=== PATIENT | male | born 1955 | race Caucasian/White ===

== ENCOUNTER 2020-03-25 09:38 | Emergency (ER) | payer BC ==
[~2020-03-25] VITALS: Ht 177.8 cm; Wt 108.8 kg
--- NOTE | 2020-03-25 10:05 | ED Back Pain ---
General Chief Complaint: Back Problems Stated Complaint: BACK PAIN Nursing Triage Note: Pt c/o back pain that began approximately three weeks ago that then moved into bilat hip pain. Pt reports history of bulging disks. Pt reports taking aleve with some relief for approximately one hour after taking. Pt also stated the pain feels like "there are high heeled gorillas standing on my toes." Pt reports urinating without difficulty, however is having difficulty with bowel movements. Pt has seen Dr. Lockhart in the past for this problem, but reports it has been approximately 7-8 years since last visit. Pt reports pain of 2/10 righto now, however with movement, pain is 7-8/10. Nursing Sepsis Screen: No Definite Risk Source of Information: Patient Exam Limitations: No Limitations (ANDREA HERNANDEZ,MED STUDENT) History of Present Illness Date Seen by Provider: Mar 25, 2020 Time Seen by Provider: 09:50 Initial Comments Mr. Castro is a 64 year old male who presents to the emergency department this morning with complaints of back pain. The pain originally started 3 weeks ago but worsened 2 days ago. He denies any trauma or injury but states he has been hauling rock and moving which has exacerbated the pain. He has tried aleve with little improvement. He has a history of disc herniation, he was previously seen by Dr. Lockhart and tried physical therapy as well as injections but states he only got relief for 1.5 days with the injections so discontinued. He has not been seen for his back problems in nearly 8 years. The pain is improved with rest and laying flat. The pain is described to be a 2/10 with rest and an 8/10 with movement. He denies incontinence or trouble with urination. He states he is slightly constipated but attributes it the the aleve. Last bowel movement was this morning. Location: Lumbar Spine Timing/Duration: Getting Worse Severity: Moderate Pain/Injury Location: Back Radiation: Other (left hip) Modifying Factors: Worse With Movement; Improves With Rest Associated Symptoms: No muscle spasms, No weakness; numbness in legs/feet (left (waxes and wanes)); No loss of bladder control, No loss of bowel control (ANDREA HERNANDEZ,MED STUDENT) Allergies and Home Medications Allergies Coded Allergies: No Known Drug Allergies (Unverified , 07/30/15) Home Medications Cyclobenzaprine HCl 10 Mg Tablet, 10 MG PO Q8H PRN for SPASMS Prescribed by: CARMEN PAT on 03/25/201101 Oxycodone HCl/Acetaminophen 1 Each Tablet, 1 TAB PO Q4H Prescribed by: CARMEN PAT on 03/25/201101 Prednisone 20 Mg Tab, 40 MG PO DAILY Prescribed by: CARMEN PAT on 03/25/201101 Tramadol HCl 50 Mg Tablet, 50 MG PO Q6H PRN for PAIN-BREAKTHROUGH Prescribed by: CARMEN PAT on 03/25/201101 Patient Home Medication List Home Medication List Reviewed: Yes (ANDREA HERNANDEZ MED STUDENT) Review of Systems Constitutional: no symptoms reported EENTM: see HPI Respiratory: no symptoms reported Cardiovascular: no symptoms reported Gastrointestinal: constipation Genitourinary: No decreased output, No incontinence Musculoskeletal: back pain (radiates to left hip) Skin: no symptoms reported Psychiatric/Neurological: No Symptoms Reported (ANDREA HERNANDEZ MED STUDENT) Past Wcuhcic-Whildu-Uosivw Hx Patient Social History Alcohol Use: Occasionally Uses Recreational Drug Use: No Smoking Status: Never a Smoker 2nd Hand Smoke Exposure: No Recent Foreign Travel: No Contact w/Someone Who Travel: No Recent Infectious Disease Expo: No (ANDREA HERNANDEZ MED STUDENT) Past Medical History Surgeries: Yes (KNEE FX, UMBILICAL HERNIA, lasic) Abdominal, Eye Surgery, Orthopedic, Tonsillectomy, Vasectomy Respiratory: No Cardiac: No Neurological: No Genitourinary: No Gastrointestinal: Yes (umbilical hernia) Abdominal Hernia Musculoskeletal: Yes (ARTHRITIS) Arthritis, Chronic Back Pain Endocrine: No HEENT: No Cancer: No Psychosocial: No Blood Disorders: No (ANDREA HERNANDEZ MED STUDENT) Physical Exam Vital Signs Vital Signs - First Documented 03/25/20 09:42 Temp 36.6 Pulse 70 Resp 20 B/P (MAP) 147/99 (115) Pulse Ox 96 O2 Delivery Room Air (CARMEN SHEPPARD MD) Vital Signs Capillary Refill : Less Than 3 Seconds (ANDREA HERNANDEZ MED STUDENT) Height, Weight, BMI Height: 5'10.00" Weight: 240lbs. 0.0oz. [id number]; 34.00 BMI Method: General Appearance: No Apparent Distress, Moderate Distress HEENT: PERRL/EOMI Neck: Full Range of Motion, Non Tender, Supple Cardiovascular: Regular Rate, Rhythm, No Murmur Respiratory: Chest Non Tender, Lungs Clear, Normal Breath Sounds, No Accessory Muscle Use, No Respiratory Distress Peripheral Pulses: 2+ Dorsalis Pedis (R), 2+ Left Dors-Pedis (L), 2+ Radial Pulses (R), 2+ Radial Pulses (L) Gastrointestinal: Normal Bowel Sounds, Non Tender, Soft (ANDREA HERNANDEZ,MED STUDENT) Progress/Results/Core Measures Results/Orders Lab Results Laboratory Tests Test 03/25/20 10:08 Range/Units Urine Color YELLOW Urine Clarity CLEAR Urine pH 5.5 5-9 Urine Specific [place] 1.025 H 1.016-1.022 Urine Protein NEGATIVE NEGATIVE Urine Glucose (UA) NEGATIVE NEGATIVE Urine Ketones NEGATIVE NEGATIVE Urine Nitrite NEGATIVE NEGATIVE Urine Bilirubin NEGATIVE NEGATIVE Urine Urobilinogen 0.2 < = 1.0 MG/DL Urine Leukocyte Esterase NEGATIVE NEGATIVE Urine RBC (Auto) NEGATIVE NEGATIVE Urine RBC NONE /HPF Urine WBC NONE /HPF Urine Crystals NONE /LPF Urine Bacteria NEGATIVE /HPF Urine Casts NONE /LPF Urine Mucus SMALL H /LPF Urine Culture Indicated NO (CARMEN SHEPPARD MD) My Orders Orders - CARMEN SHEPPARD MD Ua Culture If Indicated (03/25/20 09:53) Ketorolac Injection (Toradol Injection) (03/25/20 11:00) Orphenadrine Inj (Ed Only) (Norflex Inje (03/25/20 11:00) Tramadol Tablet (Ultram Tablet) (03/25/20 11:00) (CARMEN SHEPPARD MD) Medications Given in ED Current Medications Medications Dose Ordered Sig/Koffi Route Start Time Stop Time Status Last Admin Dose Admin Ketorolac Tromethamine 30 mg ONCE ONCE IM 03/25/20 11:00 03/25/20 11:01 DC 03/25/20 11:07 30 MG Orphenadrine Citrate 60 mg ONCE ONCE IM 03/25/20 11:00 03/25/20 11:01 DC 03/25/20 11:11 60 MG Tramadol HCl 50 mg ONCE ONCE PO 03/25/20 11:00 03/25/20 11:01 DC 03/25/20 11:07 50 MG (CARMEN SHEPPARD MD) Vital Signs/I&O 03/25/20 03/25/20 09:42 11:40 Temp 36.6 36.6 Pulse 70 58 Resp 20 20 B/P (MAP) 147/99 (115) 151/98 (115) Pulse Ox 96 94 O2 Delivery Room Air Room Air (CARMEN SHEPPARD MD) Blood Pressure Mean: 115 Departure Impression Primary Impression: Low back pain Qualified Codes: M54.42 - Lumbago with sciatica, left side; M54.41 - Lumbago with sciatica, right side Disposition: 01 HOME, SELF-CARE Condition: Improved Departure-Patient Inst. Decision time for Depature: 10:55 (CARMEN SHEPPARD MD) Referrals: SHAYLA MIRAMONTES MD (PCP) Primary Care Physician Patient Instructions: Low Back Pain in Adults, Radiculopathy Add. Discharge Instructions: 1. For primary pain management use ibuprofen up to 600 mg every 6 hours or naproxen up to 500 mg twice daily. 2. For more severe pain and add Percocet and/or tramadol. Use a stool softener such as Colace once or twice daily while on these medications to prevent constipation. 3. Stay well-hydrated with clear liquids. 4. Gentle heat and stretching may help reduce pain and relax her muscles. 5. For muscle tension or spasms use cyclobenzaprine as prescribed. 6. Prednisone as prescribed should gradually reduce your inflammation and pain over the next several days. Take prednisone early in the day to avoid sleep disturbance. Take prednisone and NSAIDs (ibuprofen or naproxen) with food or milk to avoid stomach upset. 7. Follow-up with your primary care provider as soon as possible to discuss long-term treatment and evaluation of your back pain. Repeat MRI may be appropriate. 8. Return to the emergency room if you have worsening or uncontrolled symptoms, especially if you develop problems controlling bowels or bladder or develop true weakness in the legs or numbness in the groin. All discharge instructions reviewed with patient and/or family. Voiced understanding. Scripts Cyclobenzaprine HCl (Cyclobenzaprine HCl) 10 Mg Tablet 10 MG PO Q8H PRN for SPASMS, #15 TAB 0 Refills Prov: CARMEN SHEPPARD MD 03/25/20 Tramadol HCl (Ultram) 50 Mg Tablet 50 MG PO Q6H PRN for PAIN-BREAKTHROUGH, #15 TAB Prov: CARMEN SHEPPARD MD 03/25/20 Oxycodone HCl/Acetaminophen (Percocet 5-325 mg Tablet) 1 Each Tablet 1 TAB PO Q4H for PAIN-MODERATE MDD 6 TABS, #15 TAB Prov: CARMEN SHEPPARD MD 03/25/20 Prednisone (Prednisone) 20 Mg Tab 40 MG PO DAILY, #10 TAB 0 Refills Prov: CARMEN SHEPPARD MD 03/25/20 I have personally interviewed and examined this patient along with MORALES Lamas. I agree with MS4 history, physical, assessment, and documentation except for otherwise noted. This gentleman presents with several days of severe exacerbation of chronic back pain. He describes radicular symptoms down both legs but denies bowel or bladder dysfunction, saddle paresthesia, or leg weakness. He reports a history of old judging disks requiring physical therapy and injection therapy in the past. He did not think these modalities of tr eatment were very effective. He denies any recent trauma although he has been doing some manual labor. He has been using Aleve and Tylenol for pain. He reports he would rather not take opioids if he doesn't have to because he has trouble with the side effects. Patient was treated with Toradol, Norflex, and tramadol. He was prescribed tramadol and Percocet. He would like to avoid the Percocet if possible and was therefore given some tramadol to trial. Ultimately, he will likely need further evaluation by his PCP and may need a repeat MRI. Exam: Gen.: Alert, oriented, no distress when at rest HEENT: Normocephalic and atraumatic Heart: Regular rate and rhythm without murmur Lungs: Clear to auscultation bilaterally with normal effort Abdomen: Soft, and nontender Extremities: Normal to inspection with no edema Back: No vertebral tenderness or focal musculoskeletal tenderness. Neuro: Strength, sensation, coordination, and ambulation intact in the lower extremities (CARMEN SHEPPARD MD) ANDREA HERNANDEZ,MED STUDENT Mar 25, 2020 10:05 CARMEN SHEPPARD MD Mar 25, 2020 10:59
[2020-03-25 10:14] LABS: BILIRUBIN,URINE NEGATIVE (NEGATIVE); CLARITY,URINE CLEAR; COLOR,URINE YELLOW; GLUCOSE, URINE (UA) NEGATIVE (NEGATIVE); KETONES,URINE NEGATIVE (NEGATIVE); LEUKOCYTE ESTERASE ,URINE NEGATIVE (NEGATIVE); NITRITE,URINE NEGATIVE (NEGATIVE); PH,URINE 5.5 (5-9); PROTEIN,URINE NEGATIVE (NEGATIVE)
[2020-03-25 10:23] LABS: BACTERIA,URINE NEGATIVE /HPF
[2020-03-25] MEDS ORDERED: KETOROLAC 30 MG/ML VIAL IM ONE (11:00)
[2020-03-25] MEDS ORDERED: ORPHENADRINE 60 MG/2 ML (NORFLEX) AMP (ED ONLY) IM ONE (11:00)
[2020-03-25] MEDS ORDERED: TRAM-42 PO (11:02)
[2020-03-25] MEDS ORDERED: PRD20T PO (11:02)
[2020-03-25] MEDS ORDERED: CYCL10TA9 PO (11:02)
[2020-03-25] MEDS ORDERED: OXYC1TAB87 PO (11:02)
[2020-03-25 11:40] VITALS: BP 151/98
== END 2020-03-25 11:40 | disposition home or self-care (01) ==
LOC: EDUNIT# 09:38 → ER 09:40
DX: M54.42 Lumbago with sciatica, left side (principal); M54.41 Lumbago with sciatica, right side
CPT/HCPCS: 81000; 96372; 99284